=== PATIENT | female | born 1995 | race Caucasian/White ===

== ENCOUNTER 2024-01-15 06:00 | Day surgery (SDC) | payer OTHER ==
[2024-01-10 10:27] LABS: BASOPHILS % (AUTO) 0.8 % (0.0-2.0); EOSINOPHILS # (AUTO) 0.1 K/uL (0.0-0.4); EOSINOPHILS % (AUTO) 2.5 % (0.0-4.0); HEMATOCRIT 32.8 % (36-48); LYMPHOCYTES # (AUTO) 1.4 K/uL (1.0-5.5); LYMPHOCYTES % (AUTO) 29.4 % (20.5-51.5); MEAN CORPUSCULAR HEMOGLOBIN 21 pg (27-31); MEAN CORPUSCULAR HGB CONC 31 % (32-36); MEAN CORPUSCULAR VOLUME 69 fL (79.0-98.0); MONOCYTES # (AUTO) 0.3 K/uL (0.0-1.0); MONOCYTES % (AUTO) 7.5 % (1.7-9.3); NEUTROPHILS # (AUTO) 2.8 K/uL (1.8-7.7); NEUTROPHILS % (AUTO) 59.8 % (40.0-70.0); PLATELET COUNT (AUTO) 294 K/uL (130-430); RED BLOOD CELL COUNT(AUTO) 4.77 MIL/uL (4.2-6.2); RED CELL DISTRIBUTION WIDTH 18.3 % (9.0-15.0); WHITE BLOOD COUNT (AUTO) 4.6 K/uL (4.8-10.8)
[2024-01-10 10:32] LABS: BILIRUBIN,URINE NEGATIVE (NEGATIVE); BLOOD, URINE NEGATIVE (NEGATIVE); CLARITY/URINE CLEAR (CLEAR); COLOR,URINE YELLOW (YELLOW); GLUCOSE,URINE NEGATIVE (NEGATIVE); KETONES,URINE NEGATIVE (NEGATIVE); LEUKOCYTE ESTERASE ,URINE NEGATIVE (NEGATIVE); NITRITE, URINE NEGATIVE (NEGATIVE); PROTEIN URINE NEGATIVE (NEGATIVE); UROBILINOGEN,URINE 0.2 (0.2-1.0)
[2024-01-10 11:14] LABS: ANISOCYTOSIS 1+; HYPOCHROMASIA 1+
[~2024-01-15] VITALS: Ht 167.6 cm; Wt 76.2 kg
[2024-01-15 06:49] LABS: HCG,QUAL RESULT NEGATIVE (NEGATIVE)
[2024-01-15] MEDS ORDERED: CEFAZOLIN SOD 2 GM in D5W 50 ML IV ONE (07:00)
[2024-01-15] MEDS ORDERED: NS IRRIG SOLN 1000 ML IR ONE (07:29)
[2024-01-15] MEDS ORDERED: BUPIVACAINE /PF 0.25% 10 ML VIAL INJ ONE (07:29)
[2024-01-15] MEDS ORDERED: NS 1000 ML IV.SOLN IV ONE (07:29)
[2024-01-15] MEDS ORDERED: PROPOFOL 200MG/ 20ML VIAL (DIPRIVAN) IV ONE (07:29)
[2024-01-15] MEDS ORDERED: SEVOFLURANE 15 MIN GAS INH ONE (07:29)
[2024-01-15] MEDS ORDERED: ROCURONIUM BROMIDE 10 MG/ML (ZEMURON) ONE (07:29)
[2024-01-15] MEDS ORDERED: DEXAMETHASONE SOD PHOSPHATE 4 MG/ML VIAL ONE (07:29)
[2024-01-15] MEDS ORDERED: LR 1,000 ML IV.SOLN IV ONE (07:29)
[2024-01-15] MEDS ORDERED: fentaNYL CITRATE/PF 100 MCG/2 ML AMP ONE ×2 (07:42→08:56)
[2024-01-15] MEDS ORDERED: MIDAZOLAM HCL 2 MG/2 ML VIAL (VERSED) ONE (07:43)
[2024-01-15] MEDS ORDERED: ACETAMINOPHEN I.V. 1000 MG 100 ML IV ONE (07:43)
[2024-01-15] MEDS ORDERED: KETAMINE HCL IN 0.9 % NACL 50 MG/5 ML SYRINGE ONE (07:43)
[2024-01-15] MEDS ORDERED: KETOROLAC TROMETHAMINE 30 MG VIAL IM ONE (09:30)
[2024-01-15] MEDS ORDERED: KETOROLAC TROMETHAMINE 30 MG VIAL IVP ONE (09:30)
[2024-01-15] MEDS ORDERED: NALOXONE HCL 0.4 MG/ML AMP (NARCAN) IVP PRN (09:30)
[2024-01-15] MEDS ORDERED: OXYCODONE/ACETAMINOPHEN 5-325 TABLET PO PRN ×2 (09:30)
[2024-01-15] MEDS ORDERED: hydrALAZINE HCL 20 MG/ML VIAL IV PRN (09:30)
[2024-01-15] MEDS ORDERED: ONDANSETRON HCL 4 MG/2 ML VIAL IVP PRN (09:30)
[2024-01-15] MEDS: ONDANSETRON HCL 4 MG/2 ML VIAL IVP PRN (10:40)
[2024-01-15] MEDS ORDERED: ONDANSETRON HCL 4 MG/2 ML VIAL ONE (10:43)
[2024-01-15] MEDS ORDERED: HYDROcodone/ACETAMIN 5-325 MG TAB (NORCO/ VICODIN) ONE (12:04)
[2024-01-15] MEDS: HYDROcodone/ACETAMIN 5-325 MG TAB (NORCO/ VICODIN) PO PRN (12:10)
[2024-01-15 12:31] VITALS: O2SAT 98
[2024-01-15 14:48] VITALS: BP_SYST 109; PULSE 80; RESP 16
[2024-01-15] MEDS ORDERED: HYDROmorphone 1 MG/ML INJ. CARTRIDGE ONE (18:28)
== END 2024-01-15 13:47 | disposition home or self-care (01) ==
LOC: SMU 06:00 → SDS 06:00
PROVIDERS: ATTEND Specialist
DX: R10.2 Pelvic and perineal pain (principal); N80.101 Endometriosis of right ovary, unspecified depth; N80.9 Endometriosis, unspecified; G43.909 Migraine, unspecified, not intractable, without status migrainosus; F41.9 Anxiety disorder, unspecified; Z88.5 Allergy status to narcotic agent; Z90.721 Acquired absence of ovaries, unilateral; Z79.899 Other long term (current) drug therapy
CPT/HCPCS: 81003; 81001; 84702; 85025; 87081; 36415; 58662; 84703; 88307; J3490; J0690; J1100; J2250; J2405; J2704; J3010; J1171; J7060; J7120; J7030; C1727; J0131